=== PATIENT | female | born 1995 | race Caucasian/White ===

== ENCOUNTER 2017-10-21 00:06 | Emergency (ER) | payer SELFPAY ==
[~2017-10-21] VITALS: Ht 160 cm; Wt 57.7 kg
[2017-10-21 00:08] VITALS: BP 122/80
[2017-10-21] MEDS ORDERED: PROPARACAINE OPHTH 0.5%, 15ML ONE (00:24)
== END 2017-10-21 00:48 | disposition home or self-care (01) ==
LOC: ED 00:30
DX: H10.023 Other mucopurulent conjunctivitis, bilateral (principal)
CPT/HCPCS: 99283